=== PATIENT | female | born 1935 | race Caucasian/White ===

== ENCOUNTER → 2016-06-30 | Outpatient (REF) | payer MEDICARE, OTHER | LOC: M LAB REF 16:31 | PROVIDERS: ATTEND Family Medicine | DX: L98.8 Other specified disorders of the skin and subcutaneous tissue (principal) ==

== ENCOUNTER → 2016-07-02 | Outpatient (REF) | payer MEDICARE, OTHER ==
[2016-07-02 18:40] LABS: BASO % 0.9 % (0.0-1.0); EOS # 0.1 K/mm3 (0.0-0.50); EOS % 2.5 % (0.0-3.0); LARGE UNSTAINED CELL # 0.1 K/mm3 (0.0-0.4); LARGE UNSTAINED CELL % 2.6 % (0.0-4.0); LYMPH # 1.7 K/mm3 (1.5-4.5); LYMPH % 38.4 % (24.0-44.0); MEAN CORPUSCULAR HEMOGLOBIN 31.1 pg (27.0-33.0); MEAN CORPUSCULAR HGB CONC 32.9 g/dl (32.0-36.5); MEAN CORPUSCULAR VOLUME 94.5 fl (80.0-96.0); MONO # 0.3 K/mm3 (0.0-0.8); MONO % 6.5 % (0.0-5.0); NEUTROPHILS # 2.1 K/mm3 (1.8-7.7); PLATELET COUNT, AUTOMATED 351 k/mm3 (150-450); RED CELL DISTRIBUTION WIDTH 12.2 % (11.5-14.5); WHITE BLOOD COUNT 4.4 K/mm3 (4.0-10.0)
[2016-07-02 20:18] LABS: ALKALINE PHOSPHATASE 71 U/L (45-117); ALT/SGPT 25 U/L (12-78); ANION GAP 12 MEQ/L (8-16); AST/SGOT 17 U/L (15-37); BLOOD UREA NITROGEN 14 MG/DL (7-18); CALCIUM LEVEL 9.1 MG/DL (8.8-10.2); CARBON DIOXIDE LEVEL 23 MEQ/L (21-32); CHLORIDE LEVEL 106 MEQ/L (98-107); CREATININE FOR GFR 0.86 MG/DL (0.55-1.02); GLOMERULAR FILTRATION RATE > 60.0 (>32); GLUCOSE, FASTING 109 MG/DL (83-110); POTASSIUM SERUM 4.2 MEQ/L (3.5-5.1); SODIUM LEVEL 141 MEQ/L (136-145)
[2016-07-02 20:19] LABS: ALBUMIN 3.8 GM/DL (3.2-5.2); ALBUMIN/GLOBULIN RATIO 1.19 (1.00-1.93); BILIRUBIN,TOTAL 0.4 MG/DL (0.2-1.0); CHOLESTEROL LEVEL 305 MG/DL (<200); TRIGLYCERIDES LEVEL 193 MG/DL (<150)
== END | disposition home or self-care (01) ==
LOC: M LAB REF 16:48
PROVIDERS: ATTEND Family Medicine
DX: L98.9 Disorder of the skin and subcutaneous tissue, unspecified (principal); F32.0 Major depressive disorder, single episode, mild; E03.9 Hypothyroidism, unspecified; I10 Essential (primary) hypertension

== ENCOUNTER → 2016-09-22 | Outpatient (REF) | payer MEDICARE, OTHER ==
[2016-09-22 14:07] LABS: INR 2.99
== END ==
LOC: M SHH 13:41
PROVIDERS: ATTEND Family Medicine
DX: R26.9 Unspecified abnormalities of gait and mobility (principal); R79.1 Abnormal coagulation profile

== ENCOUNTER → 2020-02-10 | Outpatient (REF) | payer MEDICARE, OTHER | LOC: M LAB REF 07:45 | PROVIDERS: ATTEND Dermatology | DX: L57.0 Actinic keratosis (principal) | CPT/HCPCS: 11104; 88305; 88342; G0463 ==

== ENCOUNTER → 2020-03-21 | Outpatient (RCR) | payer MEDICARE, OTHER | LOC: M PT 03-12 08:11 | PROVIDERS: ATTEND Dermatology | DX: C83.30 Diffuse large B-cell lymphoma, unspecified site (principal) ==

== ENCOUNTER 2020-04-20 08:45 | Outpatient (RCR) | payer MEDICARE, OTHER | END 2020-04-21 | LOC: M PT 08:45 | PROVIDERS: ATTEND Dermatology | DX: C84.A0 Cutaneous T-cell lymphoma, unspecified, unspecified site (principal) ==

== ENCOUNTER → 2020-05-23 | Outpatient (REF) | payer MEDICARE, OTHER | LOC: M LAB REF 17:21 | PROVIDERS: ATTEND Physician Assistant | DX: C85.90 Non-Hodgkin lymphoma, unspecified, unspecified site (principal) | CPT/HCPCS: 87070; 87077; 87186; G0463 ==

== ENCOUNTER → 2020-06-13 | Outpatient (CLI) | payer MEDICARE, OTHER ==
[2020-06-13 12:19] LABS: BASO # 0.1 10^3/uL (0.0-0.2); EOS % 0.8 % (0.0-3.0); HEMATOCRIT 41.3 % (36.0-47.0); HEMOGLOBIN 13.3 g/dl (12.0-15.5); LYMPH # 1.3 10^3/uL (1.5-5.0); LYMPH % 24.9 % (24.0-44.0); MEAN CORPUSCULAR HEMOGLOBIN 29.6 pg (27.0-33.0); MEAN CORPUSCULAR HGB CONC 32.2 g/dl (32.0-36.5); MONO # 0.6 10^3/uL (0.0-0.8); MONO % 10.8 % (0.0-5.0); NEUTROPHILS # 3.2 10^3/uL (1.5-8.5); NEUTROPHILS % 62.3 % (36.0-66.0); RED BLOOD COUNT 4.49 10^6/uL (4.00-5.40); WHITE BLOOD COUNT 5.1 10^3/uL (4.0-10.0)
[2020-06-13 12:53] LABS: ALBUMIN 3.6 GM/DL (3.2-5.2); ALT/SGPT 32 U/L (12-78); BILIRUBIN,TOTAL 0.3 MG/DL (0.2-1.0); BLOOD UREA NITROGEN 10 MG/DL (7-18); CARBON DIOXIDE LEVEL 29 MEQ/L (21-32); CHLORIDE LEVEL 99 MEQ/L (98-107); CHOLESTEROL LEVEL 196 MG/DL (<200); CHOLESTEROL RISK RATIO 2.333 (<5); CREATININE FOR GFR 0.78 MG/DL (0.55-1.30); FREE T4 1.33 NG/DL (0.76-1.46); GLOMERULAR FILTRATION RATE > 60.0 (>32); GLUCOSE, FASTING 94 MG/DL (70-100); HDL CHOLESTEROL 84 MG/DL (>40); LDH LACTATE DEHYDROGENASE 171 U/L (84-246); LDL CHOLESTEROL 85 MG/DL (<100); NON-HDL-C 112 MG/DL; POTASSIUM SERUM 3.9 MEQ/L (3.5-5.1); SODIUM LEVEL 134 MEQ/L (136-145); TOTAL PROTEIN 6.4 GM/DL (6.4-8.2); TRIGLYCERIDES LEVEL 135 MG/DL (<150)
== END ==
LOC: M LAB 11:00
PROVIDERS: ATTEND Physician Assistant
DX: C84.A0 Cutaneous T-cell lymphoma, unspecified, unspecified site (principal); Z79.899 Other long term (current) drug therapy
CPT/HCPCS: 36415; 80053; 80061; 83615; 84439; 84443; 84550; 85027; G0463

== ENCOUNTER → 2020-07-12 | Outpatient (REF) | payer MEDICARE, OTHER ==
[~2020-07-12] MED LIST: ATOR1TAB21 PO; AUGM0.0534 TOP; ELIQ5TAB PO; HYDR-3490 PO; LEVO100T5 PO; LOSA100T50 PO; POTA1TAB14 PO; SODI1TAB6 PO; VERA120T4 PO; [UNRECOGNIZED DRUG - CODE] TOP
== END ==
LOC: M LAB REF 18:30
PROVIDERS: ATTEND Dermatology
DX: C84.0 Mycosis fungoides (principal)
CPT/HCPCS: 87070; 87077; 87186; 87205; G0463

== ENCOUNTER → 2020-08-06 | Outpatient (CLI) | payer MEDICARE, OTHER ==
--- NOTE | 2020-08-07 08:40 | REP ---
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 Right-sided neck adenopathy. Anterior abdominal wall and right groin. COMPARISON: None. TECHNIQUE: 1 hour 22 minutes following the intravenous injection of a 13.67 mCi dose of F-18 FDG, three-dimensional PET scintigraphy is acquired from the skull base to the proximal thighs. Triplanar noncontrast CT scanning is acquired through the same anatomic range for attenuation correction, and image registration with scan parameters optimized to minimize radiation exposure to the patient. PET scintigraphy and CT datasets were fused and displayed on a workstation with multiplanar and projection display capability. FINDINGS: In the head and neck, there is a 13 mm hypermetabolic right anterior neck node at the level of the angle of the mandible above the hyoid. Maximum standard uptake value within this node is 22.0. This is the only hypermetabolic neck node seen. There is hypermetabolic activity in the nodular area of dermal thickening and cutaneous involvement in the right neck. Maximum standard uptake value in this area of cutaneous involvement is 17.22. The dermal thickening associated with this hypermetabolic uptake spans a right to left dimension of 5.3 cm. The head and neck soft tissues are otherwise unremarkable. There is no abnormal hypermetabolic uptake in the thorax. In the abdomen and pelvis, there is normal hepatic, splenic, gastrointestinal and genitourinary FDG accumulation. No intraperitoneal abnormal hypermetabolic uptake is seen. There is a focus of hypermetabolic nodular cutaneous involvement in the midline suprapubic anterior abdominal wall skin where hypermetabolic uptake is seen with maximum SUV value 17.17. This nodular area of dermal thickening measures 2.4 cm in right to left dimension. There is some dermal thickening in the right and left abdomen below this but no other frankly hypermetabolic cutaneous uptake is seen in this lesion. There is a tiny focus of hypermetabolic uptake in the right groin crease which appears to be the anterior surface of the proximal thigh skin on the right side. Maximum standard uptake value in this tiny nodular focus of increased uptake is 3.54. There is no evidence of inguinal adenopathy. No hypermetabolic alicia abnormality is seen here. IMPRESSION: Areas of cutaneous hypermetabolic nodular disease as above including the anterior neck, the suprapubic anterior abdominal wall, and the right groin. There is a single hypermetabolic alicia focus in the right neck. <Electronically signed by Cortez Harris > 08/07/20 0815
== END ==
LOC: M PLARAD 10:17
PROVIDERS: ATTEND Internal Medicine Medical Oncology
DX: C84.0 Mycosis fungoides (principal)
CPT/HCPCS: 78815; A9552

== ENCOUNTER → 2021-01-30 | Outpatient (REF) | payer MEDICARE, OTHER | LOC: M LAB REF 13:52 | PROVIDERS: ATTEND Physician Assistant | DX: L57.0 Actinic keratosis (principal) ==

== ENCOUNTER → 2021-09-02 | Outpatient (CLI) | payer MEDICARE, OTHER ==
[~2021-09-02] MED LIST changes: +AMLO1TAB25 PO; +CLON-412 PO; +FURO20TA2 PO; +LOSA100T45 PO; -LOSA100T50 PO; +SYNT112T2 PO; -VERA120T4 PO; +VERA120T71 PO
== END ==
LOC: M PLARAD 07:59
PROVIDERS: ATTEND Internal Medicine Medical Oncology
DX: R91.8 Other nonspecific abnormal finding of lung field (principal); C84.A0 Cutaneous T-cell lymphoma, unspecified, unspecified site
CPT/HCPCS: 78815; A9552

== ENCOUNTER → 2021-09-13 | Outpatient (CLI) | payer MEDICARE, OTHER ==
[~2021-09-13] MED LIST changes: +ISOVUE-370 76% 100ML VIAL ONE; +ONDA-84 PO; +TRIA1CR80 TOP
== END ==
LOC: M PLAIMG 10:01
PROVIDERS: ATTEND Internal Medicine Medical Oncology
DX: C84.A0 Cutaneous T-cell lymphoma, unspecified, unspecified site (principal)

== ENCOUNTER → 2021-09-13 | Outpatient (REF) | payer MEDICARE, OTHER ==
[~2021-09-13] MED LIST changes: -ISOVUE-370 76% 100ML VIAL ONE
== END ==
LOC: M SFHCDERM 13:46
PROVIDERS: ATTEND Nurse Practitioner Family
DX: R21 Rash and other nonspecific skin eruption (principal)

== ENCOUNTER → 2022-02-03 | Outpatient (CLI) | payer MEDICARE, OTHER | LOC: M PLARAD 09:45 | PROVIDERS: ATTEND Internal Medicine Medical Oncology | DX: C84.A9 Cutaneous T-cell lymphoma, unspecified, extranodal and solid organ sites (principal) | CPT/HCPCS: 78815; A9552 ==

== ENCOUNTER → 2022-04-03 | Outpatient (CLI) | payer MEDICARE, OTHER ==
[~2022-04-03] VITALS: Ht 147.3 cm; Wt 63.0 kg
[~2022-04-03] MED LIST changes: +LIDO1CRE42 TOP; +LIDOCAINE 1% MDV 20ML VIAL As Ordered ONE; +MIDAZOLAM INJ 2MG/2ML VIAL (J2250 PER 1MG) As Ordered ONE; +NS 1,000 ML IV SCH; +VITMTA PO; +ceFAZolin 2 GM/D5W 50 ML IV BAG (J0690 PER 500MG) As Ordered ONE; +ceFAZolin SOD 2 GM in IV 1 EA IV ONE; +diphenhydrAMINE 50MG/ML VIAL (J1200) As Ordered ONE; +fentaNYL 100 MCG/2 ML INJECTION As Ordered ONE
[2022-04-03 13:00] VITALS: BP 126/60
== END ==
LOC: M IRPRO 09:07
PROVIDERS: ATTEND Specialist
DX: C84.A0 Cutaneous T-cell lymphoma, unspecified, unspecified site (principal)
CPT/HCPCS: 36561; 99152; 99153; C1769; C1788; C1894; J0690; J1200; J1642; J1644; J2250; J3010

== ENCOUNTER → 2022-04-29 | Outpatient (POV) | payer MEDICARE, OTHER ==
[~2022-04-29] VITALS: Ht 149.9 cm; Wt 65.9 kg
[~2022-04-29] MED LIST changes: -LIDOCAINE 1% MDV 20ML VIAL As Ordered ONE; -MIDAZOLAM INJ 2MG/2ML VIAL (J2250 PER 1MG) As Ordered ONE; -NS 1,000 ML IV SCH; -ceFAZolin 2 GM/D5W 50 ML IV BAG (J0690 PER 500MG) As Ordered ONE; -ceFAZolin SOD 2 GM in IV 1 EA IV ONE; -diphenhydrAMINE 50MG/ML VIAL (J1200) As Ordered ONE; -fentaNYL 100 MCG/2 ML INJECTION As Ordered ONE
[2022-04-29 09:30] VITALS: BP 157/74
== END ==
LOC: M IRPOV 09:25
PROVIDERS: ATTEND Radiology Diagnostic Radiology
DX: Z45.2 Encounter for adjustment and management of vascular access device (principal)

== ENCOUNTER → 2022-09-15 | Outpatient (CLI) | payer MEDICARE, OTHER ==
[~2022-09-15] MED LIST changes: +BUSP5TA; +CLON0.5T2; +SODI1TAB12 PO
== END ==
LOC: M PLARAD 10:07
PROVIDERS: ATTEND Internal Medicine Medical Oncology
DX: C84.A9 Cutaneous T-cell lymphoma, unspecified, extranodal and solid organ sites (principal)
CPT/HCPCS: 78815; A9552